=== PATIENT | male | born 1945 | race Caucasian/White ===

== ENCOUNTER 2017-03-07 12:50 | Emergency (ER) | payer OTHER, MEDICARE ==
[2017-03-07 13:00] VITALS: BP 129/65
--- NOTE | 2017-03-07 13:03 | EDM.PDOC ---
ED HPI GENERAL MEDICAL PROBLEM - General Chief Complaint: General Stated Complaint: hyperglycemia Time Seen by Provider: 03/07/17 13:00 Source of Information: Reports: Patient History Limitations: Reports: No limitations - History of Present Illness INITIAL COMMENTS - FREE TEXT/NARRATIVE: This patient is a 71 year old male that presents to the ER. Patient reports that he was seen at the [facility] this past week. He reports that he was instructed to stop his Metformin and decrease his Glipizide to once a day. He reports that he is scheduled to see his doctor on Thursday for labs and CT scan. Patient reports that he took hsi BS today and it read over 400. Patient was concerned, he called the [facility]. He reports he was instructed not to take any of his medication today and present to the ER. The patient denies any symptoms. He denies lentz, dizziness, n, v, cp, soa, abd pain, urinary changes. Reports no changes in his chronic diarrhea. Accucheck here is 334. Onset: today Onset Date: 03/07/17 Improves with: Reports: None Worsens with: Reports: None Associated Symptoms: Reports: no other symptoms - Related Data Allergies Allergy/AdvReac Type Severity Reaction Status Date / Time No Known Allergies Allergy Verified 03/07/17 13:00 ED ROS GENERAL - Review of Systems Review Of Systems: See Below Constitutional: Reports: no symptoms HEENT: Reports: No symptoms Respiratory: Reports: No Symptoms Cardiovascular: Reports: No symptoms Endocrine: Reports: high glucose GI/Abdominal: Reports: No symptoms : Reports: no symptoms Musculoskeletal: Reports: no symptoms Skin: Reports: no symptoms Neurological: Reports: No Symptoms Psychiatric: Reports: No symptoms Hematologic/Lymphatic: Reports: no symptoms Immunologic: Reports: no symptoms ED EXAM, GENERAL - Physical Exam Exam: See Below Exam Limited By: No limitations General Appearance: alert, WD/WN, no apparent distress Eye Exam: bilateral eye: normal inspection, PERRL Ears: normal external exam, normal canal, hearing grossly normal, normal TMs Ear Exam: bilateral ear: auricle normal, canal normal, TM normal Nose: normal inspection, normal mucosa, no blood Throat/Mouth: Normal inspection, Normal lips, Normal teeth, Normal gums, Normal oropharynx, Normal voice, No airway compromise Head: atraumatic, normocephalic Neck: normal inspection, supple, non-tender, full range of motion Respiratory/Chest: no respiratory distress, lungs clear, normal breath sounds, no accessory muscle use Cardiovascular: normal peripheral pulses, regular rate, rhythm, no edema, no gallop, no JVD, no murmur, no rub Peripheral Pulses: 2+: radial (L), radial (R), posterior tibial (L), posterior tibial (R), dorsalis pedis (L), dorsalis pedis (R) GI/Abdominal: soft, non tender Back Exam: normal inspection, full range of motion Extremities: normal inspection, normal range of motion, non-tender, no pedal edema, normal capillary refill Neurological: alert, oriented, normal cognition, normal gait, no motor/sensory deficits Psychiatric: normal affect, normal mood Skin Exam: Warm, Dry, Intact, Normal color, No rash Lymphatic: no adenopathy Course - Vital Signs Last Recorded V/S: Last Vital Signs Temp 97.3 F 03/07/17 12:57 Pulse 88 03/07/17 12:57 Resp 18 03/07/17 12:57 BP 129/65 03/07/17 12:57 Pulse Ox 97 03/07/17 12:57 - Re-Assessments/Exams Free Text/Narrative Re-Assessment/Exam: 03/07/17 13:32 This patient is on steroids. He has been instructed to discontinue metformin. He reports he did not take his Glipizide today. I would expect his BS to be high. Patient has no symptoms. This is nonemergent. Educated patient to take his Glipizide today and daily as instructed. Educated to see his PCP Thursday. Departure - Departure Time of Disposition: 13:01 Disposition: Home, Self-Care 01 Condition: good Clinical Impression: Hyperglycemia Instructions: Hyperglycemia, [id number] Forms: ED Department Discharge Additional Instructions: Followup with your care provider as scheduled on Thursday Return to the ER for worsening of condition or any emergent concerns such as vomiting, abdominal pain, fever, or other concerns Increase fluids Take your Glipizide as directed once a day - Assessment/Plan Plan: PLEASE SEE RN NOTE FOR PFSH.
== END 2017-03-07 13:30 | disposition home or self-care (01) ==
LOC: CC.ED 12:50
DX: E11.65 Type 2 diabetes mellitus with hyperglycemia (principal); E78.00 Pure hypercholesterolemia, unspecified; I10 Essential (primary) hypertension; E66.9 Obesity, unspecified
CPT/HCPCS: 99282; 99283

== ENCOUNTER → 2020-04-02 | Day surgery (SDC) | payer MEDICARE, OTHER ==
[2020-04-02] MEDS: Lactated Ringers 1,000 ML IV SCH (15:06)
[2020-04-02] MEDS: Benzocaine 20% Oral Spray 59.2 ML Canister MUCMEM ONE (15:30)
[2020-04-02] MEDS: Midazolam 1 MG/ML 2 ML SDV IV ONE ×2 (16:00→16:04)
[2020-04-02] MEDS: Meperidine PF 50 MG/ML Syringe IV ONE (16:01)
[2020-04-02] MEDS: Meperidine PF 25 MG/ML Syringe IV ONE (16:06)
[2020-04-02] MEDS: Glucagon,Human Recombinant 1 MG Vial IM ONE (16:49)
[2020-04-02 18:11] VITALS: BP 174/81; PULSE 94
--- NOTE | 2020-04-12 12:53 | OR ---
DATE OF OPERATION: 04/02/2020 PREOPERATIVE DIAGNOSIS: ESOPHAGEAL FOOD IMPACTION. POSTOPERATIVE DIAGNOSIS: ESOPHAGEAL FOOD IMPACTION. SURGEON: Chauncey Livingston MD PROCEDURE: ESOPHAGOGASTRODUODENOSCOPY WITH ATTEMPTED DISLODGEMENT OF FOOD IMPACTION. ANESTHESIA: Conscious sedation with 6 mg of Versed, 50 mg of fentanyl IV, with continuous O2 saturation monitoring and nurse assist. COMPLICATIONS: None. SPECIMEN: None. FINDINGS: Unsuccessful dislodgement of food impaction in distal esophagus. RECOMMENDATIONS: We sent the patient for surgical consultation and Anesthesia to assist with this difficult case. INDICATIONS: The patient presented to [facility] with inability to swallow for over 24 hours. He was consulted for EGD. DESCRIPTION OF PROCEDURE: The patient was prepped and draped, placed in the left lateral decubitus position. Lubricated Olympus gastroscope was inserted over a bit, advanced to cricopharyngeus area and easily intubated in the esophagus. Esophageal lining was benign until its most distal portion, where the patient had a very enlarged and complicated food impaction of what appeared to be chicken. We spent about 15 minutes trying to piecemeal this away, could not be lightly advanced through the EG junction, and we were having a hard time keeping him sedated. This patient suffers from COPD. We were having some degree of borderline sats during his procedure and felt he needed more advanced level of care with material combiner for assist, and we elected to terminate at that point. Complications during this were none, and the patient recovered nicely in the recovery room. PATO/JOHN /[id number]
== END ==
LOC: CC.SDS 14:32
PROVIDERS: ATTEND Family Medicine
DX: T18.128A Food in esophagus causing other injury, initial encounter (principal); I11.0 Hypertensive heart disease with heart failure; I50.9 Heart failure, unspecified; J44.9 Chronic obstructive pulmonary disease, unspecified; I25.10 Atherosclerotic heart disease of native coronary artery without angina pectoris; E78.00 Pure hypercholesterolemia, unspecified; E11.9 Type 2 diabetes mellitus without complications; Z79.84 Long term (current) use of oral hypoglycemic drugs; Z79.899 Other long term (current) drug therapy; Z88.8 Allergy status to other drugs, medicaments and biological substances; Z79.82 Long term (current) use of aspirin
CPT/HCPCS: 43247; J1610; J2175; J2250; J7120